=== PATIENT | female | born 1950 | race Caucasian/White ===

== ENCOUNTER 2020-05-03 22:56 | Emergency (ER) | payer OTHER ==
[2020-05-04 00:25] LABS: BASOPHIL 0.5 % (0-2); EOSINOPHIL 1.2 % (0-7); HCT 45.8 % (37.0-47.0); HGB 14.4 g/dl (12.5-16.0); MCH 27.9 pg (25.0-31.0); MCHC 31.4 g/dL (32.0-36.0); MCV 88.6 fL (78.0-100.0); MONOCYTE 5.7 % (0-12); MPV 10.2 fL (6.0-9.5); NEUTROPHIL 75.7 % (41-80); NRBC 0; PLT 308 K/uL (150-400); RBC 5.17 M/uL (4.20-5.40); RDW 13.5 % (11.5-14.0); WBC 15.3 K/uL (4.0-10.5)
[2020-05-04 00:26] LABS: BILIRUBIN NEGATIVE (NEGATIVE); BLOOD 2+ Ery/uL (NEGATIVE); CLARITY CLEAR (CLEAR); COLOR YELLOW (YELLOW); GLUCOSE (U) 3+ mg/dL (NORMAL); LEUKOCYTES NEGATIVE Leu/uL (NEGATIVE); NITRITE NEGATIVE (NEGATIVE); PROTEIN NEGATIVE (NEGATIVE); SPECIFIC GRAVITY 1.015 (1.001-1.030); UROBILINOGEN 0.2 mg/dL (0.2-1.0); pH 5.5 (5.0-9.0)
[2020-05-04 00:29] LABS: BACTERIA TRACE; YEAST PRESENT
[2020-05-04 00:43] LABS: BILIRUBIN - TOTAL 0.4 mg/dL (0.2-1.0); BUN/CREAT RATIO (CALC) 17.7 RATIO; CREATININE 0.62 mg/dL (0.51-0.95); GLOBULIN (CALCULATION) 4.1 g/dL; TOTAL PROTEIN 8.1 g/dL (6.4-8.2)
[2020-05-04] MEDS ORDERED: ZOFRAN4 M1 PO (02:55)
[2020-05-04] MEDS ORDERED: NORCO 5-325 TA1 EACH PO (02:55)
== END 2020-05-04 03:15 | disposition home or self-care (01) ==
LOC: FER 22:56
PROVIDERS: Emergency Medicine
DX: S20.212A Contusion of left front wall of thorax, initial encounter (principal); S30.1XXA Contusion of abdominal wall, initial encounter; I10 Essential (primary) hypertension; E11.9 Type 2 diabetes mellitus without complications; Z88.8 Allergy status to other drugs, medicaments and biological substances; V49.50XA Passenger injured in collision with unspecified motor vehicles in traffic accident, initial encounter; Y92.410 Unspecified street and highway as the place of occurrence of the external cause
CPT/HCPCS: 36415; 71260; 80053; 81001; 83690; 85025; 93005; J1170; J2405; J7030; Q9967